=== PATIENT | male | born 1945 | race Caucasian/White ===

== ENCOUNTER → 2016-11-25 | Outpatient (CLI) | payer MEDICARE ==
[~2016-11-25] MED LIST: OMNIPAQUE 350 MG/ML, 75ML BOTTLE ONE
== END | disposition home or self-care (01) ==
LOC: CFH 13:35
PROVIDERS: ATTEND Internal Medicine Cardiovascular Disease
DX: I71.2 Thoracic aortic aneurysm, without rupture (principal); E78.2 Mixed hyperlipidemia
CPT/HCPCS: 71260; 82565; 93880; Q9967

== ENCOUNTER → 2017-04-20 | Outpatient (CLI) | payer MEDICARE ==
[2017-04-20 13:52] LABS: ASPARTATE AMINO TRANSFERASE 12 U/L (15-37); BLOOD UREA NITROGEN 17 mg/dL (7-18)
== END | disposition home or self-care (01) ==
LOC: CFH 08:07
PROVIDERS: ATTEND Internal Medicine Cardiovascular Disease
DX: E11.9 Type 2 diabetes mellitus without complications (principal); I10 Essential (primary) hypertension; E78.2 Mixed hyperlipidemia; E66.01 Morbid (severe) obesity due to excess calories; G47.00 Insomnia, unspecified
CPT/HCPCS: 36415; 80053; 80061

== ENCOUNTER → 2017-11-30 | Outpatient (CLI) | payer MEDICARE ==
[~2017-11-30] MED LIST changes: +OMNIPAQUE 350 MG/ML, 100ML BOTTLE ONE; -OMNIPAQUE 350 MG/ML, 75ML BOTTLE ONE
== END | disposition home or self-care (01) ==
LOC: CFH 09:02
PROVIDERS: ATTEND Internal Medicine Cardiovascular Disease
DX: I71.2 Thoracic aortic aneurysm, without rupture (principal)
CPT/HCPCS: 71275; Q9967

== ENCOUNTER → 2018-06-09 | Outpatient (CLI) | payer MEDICARE ==
[2018-06-09 15:19] LABS: CREATININE 1.13 mg/dL (0.7-1.3)
== END | disposition home or self-care (01) ==
LOC: RAD 14:18
PROVIDERS: ATTEND Family Medicine
DX: N28.1 Cyst of kidney, acquired (principal); R59.1 Generalized enlarged lymph nodes
CPT/HCPCS: 36415; 74177; 82565; Q9967

== ENCOUNTER 2018-06-16 14:40 | Outpatient (CLI) | payer MEDICARE ==
[2018-06-16] MEDS ORDERED: OMNIPAQUE 350 MG/ML, 100ML BOTTLE ONE (16:36)
== END 2018-06-16 23:59 | disposition home or self-care (01) ==
LOC: CFH 14:40
PROVIDERS: ATTEND Family Medicine
DX: R59.1 Generalized enlarged lymph nodes (principal)
CPT/HCPCS: 70491; Q9967

== ENCOUNTER → 2018-06-21 | Outpatient (CLI) | payer MEDICARE ==
[~2018-06-21] MED LIST changes: +CYCL-259 PO; +DICL100T4 PO; +GABA600T7 PO; +HYDR12.517 PO; +LIDOCAINE-MPF 1%, 5ML ONE; +LOSA100T14 PO; +OMEP-110 PO; -OMNIPAQUE 350 MG/ML, 100ML BOTTLE ONE; +SIMV20TA3 PO; +TAMS0.4C2 PO; +TRAM200T35 PO; +TRAZ-137 PO
== END | disposition home or self-care (01) ==
LOC: RAD 09:08
PROVIDERS: ATTEND Family Medicine
DX: Z02.9 Encounter for administrative examinations, unspecified (principal)

== ENCOUNTER 2018-06-28 06:41 | Day surgery (SDC) | payer MEDICARE ==
[~2018-06-28] VITALS: Ht 167.6 cm; Wt 109.7 kg
[2018-06-28 07:35] VITALS: BP 152/90
[2018-06-28] MEDS ORDERED: TRAZ-137 PO (07:35)
[2018-06-28] MEDS ORDERED: HYDR12.517 PO (07:35)
[2018-06-28] MEDS ORDERED: LOSA100T14 PO (07:35)
[2018-06-28] MEDS ORDERED: TRAM200T35 PO (07:35)
[2018-06-28] MEDS ORDERED: OMEP-110 PO (07:35)
[2018-06-28] MEDS ORDERED: SIMV20TA3 PO (07:35)
[2018-06-28] MEDS ORDERED: GABA600T7 PO (07:35)
[2018-06-28] MEDS ORDERED: TAMS0.4C2 PO (07:35)
[2018-06-28] MEDS ORDERED: CYCL-259 PO (07:35)
[2018-06-28] MEDS ORDERED: DICL100T80 PO (07:35)
[2018-06-28] MEDS ORDERED: LACTATED RINGERS 1,000 ML IV SCH (07:44)
[2018-06-28] MEDS ORDERED: SODIUM CHLORIDE 0.9% 1,000 ML IV SCH (08:00)
[2018-06-28] MEDS ORDERED: LIDOCAINE-MPF 1%, 5ML ONE (08:11)
[2018-06-28] MEDS ORDERED: MIDAZOLAM 1 MG/ML, 5ML ONE ×2 (08:17→08:18)
[2018-06-28] MEDS ORDERED: FENTANYL PF 100 MCG/2ML ONE (08:17)
[2018-06-28] MEDS ORDERED: FLUMAZENIL 0.1 MG/1 ML, 5ML ONE (08:18)
[2018-06-28] MEDS ORDERED: NALOXONE 1 MG/ML, 2ML ONE (08:18)
== END 2018-06-28 10:20 | disposition home or self-care (01) ==
LOC: OUT 06:41 → EDSTATUS 08:30 → OUT 10:20
PROVIDERS: ATTEND Family Medicine
DX: R59.1 Generalized enlarged lymph nodes (principal); I10 Essential (primary) hypertension; E11.9 Type 2 diabetes mellitus without complications; Z79.84 Long term (current) use of oral hypoglycemic drugs
CPT/HCPCS: 49180; 77012; 88305; 99156; J2250; J3010; J7030; 88184; 88185; 88341; 88342; 88360; 88377; 99157; J2310

== ENCOUNTER → 2018-07-14 | Outpatient (CLI) | payer MEDICARE ==
[~2018-07-14] MED LIST changes: -LIDOCAINE-MPF 1%, 5ML ONE
== END | disposition home or self-care (01) ==
LOC: PETCFH 09:37
PROVIDERS: ATTEND Internal Medicine
DX: C83.33 Diffuse large B-cell lymphoma, intra-abdominal lymph nodes (principal); R59.9 Enlarged lymph nodes, unspecified
CPT/HCPCS: 78815; A9552

== ENCOUNTER → 2018-07-14 | Outpatient (CLI) | payer MEDICARE | END | disposition home or self-care (01) | LOC: CVU 13:12 | PROVIDERS: ATTEND Internal Medicine | DX: I11.9 Hypertensive heart disease without heart failure (principal); E78.5 Hyperlipidemia, unspecified; C83.33 Diffuse large B-cell lymphoma, intra-abdominal lymph nodes | CPT/HCPCS: 0399T; 93306 ==

== ENCOUNTER 2018-07-19 06:54 | Day surgery (SDC) | payer MEDICARE ==
[~2018-07-19] VITALS: Ht 167.6 cm; Wt 110.0 kg
[2018-07-19] MEDS ORDERED: SODIUM CHLORIDE 0.9% 1,000 ML IV SCH (07:26)
[2018-07-19] MEDS ORDERED: CEFAZOLIN PMX 1GM/50ML 50 ML IV ONE (07:30)
[2018-07-19 07:37] VITALS: BP 130/91
[2018-07-19] MEDS ORDERED: LIDOCAINE-MPF 1%, 5ML ONE (07:47)
[2018-07-19] MEDS ORDERED: LIDOCAINE 1%, 20ML ONE (07:47)
[2018-07-19] MEDS ORDERED: NALOXONE 1 MG/ML, 2ML ONE (08:11)
[2018-07-19] MEDS ORDERED: MIDAZOLAM 1 MG/ML, 5ML ONE (08:11)
[2018-07-19] MEDS ORDERED: FENTANYL PF 100 MCG/2ML ONE ×2 (08:11)
[2018-07-19] MEDS ORDERED: FLUMAZENIL 0.1 MG/1 ML, 5ML ONE (08:11)
== END 2018-07-19 11:05 | disposition home or self-care (01) ==
LOC: OUT 06:54
PROVIDERS: ATTEND Internal Medicine
DX: Z45.2 Encounter for adjustment and management of vascular access device (principal); C83.33 Diffuse large B-cell lymphoma, intra-abdominal lymph nodes; G47.30 Sleep apnea, unspecified; I10 Essential (primary) hypertension; E78.5 Hyperlipidemia, unspecified; E11.9 Type 2 diabetes mellitus without complications; K21.9 Gastro-esophageal reflux disease without esophagitis; Z90.49 Acquired absence of other specified parts of digestive tract; Z98.890 Other specified postprocedural states
CPT/HCPCS: 36561; 38222; 76937; 77001; 77012; 99156; 99157; C1788; J1642; J2250; J3010; J3490; J2310

== ENCOUNTER 2018-07-29 14:57 | Emergency (ER) | payer MEDICARE ==
[~2018-07-29] VITALS: Ht 198.1 cm; Wt 253.0 kg
[~2018-07-29 14:57] MED LIST changes: -DICL100T4 PO; +DICL100T80 PO
[2018-07-29 15:57] LABS: ALANINE AMINOTRANSFERASE 32 U/L (12-78); ALBUMIN 3.2 g/dL (3.4-5.0); ANION GAP 8 mmol/L (5-15); CHLORIDE 107 mmol/L (98-107); CREATININE 1.46 mg/dL (0.7-1.3)
[2018-07-29 15:59] LABS: MEAN CORPUSCULAR HEMOGLOBIN 31.2 pg (27.5-34.5); MEAN CORPUSCULAR HGB CONC 33.9 g/dL (33.2-36.2); MEAN CORPUSCULAR VOLUME 91.9 fL (81-97); MEAN PLATELET VOLUME 6.9 fL (7.4-10.4); PLATELET COUNT 314 x10^3/uL (130-400); RED BLOOD COUNT 4.39 x10^6/uL (4.38-5.82); RED CELL DISTRIBUTION WIDTH 14.3 % (9.4-14.8)
[2018-07-29 16:02] LABS: ALKALINE PHOSPHATASE 118 U/L (45-117); BILIRUBIN,TOTAL 0.6 mg/dL (0.2-1.0); TOTAL PROTEIN 7.3 g/dL (6.4-8.2); TROPONIN I < 0.015 ng/mL (0.000-0.045)
[2018-07-29 16:48] LABS: MD YES
--- NOTE | 2018-07-29 16:49 | NUR ---
PT UPDATED ON POC, IV PLACED/SL. PT TO CT.
[2018-07-29 16:51] LABS: BAND#(MANUAL) 9.24 x10^3/uL; BANDS%(MANUAL) 28 % (0-7); METAMYELOCYTES# (MANUAL) 0.33 x10^3/uL (0-0); METAMYELOCYTES% (MANUAL) 1 % (0-1); MONOS#(MANUAL) 0.66 x10^3/uL (0.3-2.7); MONOS% (MANUAL) 2 % (2-9); SEG#(MANUAL) 22.77 x10^3/uL (1.8-6.8); SEGS% (MANUAL) 69 % (42-75)
[2018-07-29 16:55] LABS: <PLATELET ESTIMATE> ADEQUATE; <PLT MORPHOLOGY> NORMAL PLT MORPH; <RBC MORPHOLOGY> NORMAL
[2018-07-29] MEDS ORDERED: RITU10VI IV (17:01)
[2018-07-29] MEDS ORDERED: FILG300D2 IV (17:01)
[2018-07-29] MEDS ORDERED: OMNIPAQUE 350 MG/ML, 100ML BOTTLE ONE (17:19)
--- NOTE | 2018-07-29 17:36 | NUR ---
ALL RESULTS BACK, PT FOR RECHECK. PT AMBULATING PRN TO BR WITHOUT PROBLEM. NO CP DURING ED STAY.
[2018-07-29 18:06] VITALS: BP 168/100
== END 2018-07-29 18:09 | disposition home or self-care (01) ==
LOC: ED 17:30
DX: J90 Pleural effusion, not elsewhere classified (principal)
CPT/HCPCS: 36415; 71045; 71275; 80053; 84484; 85025; 85379; 93005; 99284; Q9967

== ENCOUNTER 2018-08-10 10:44 | Outpatient (CLI) | payer MEDICARE ==
[~2018-08-10 10:44] MED LIST changes: +FILG300D2 IV; +RITU10VI IV
== END 2018-08-10 23:59 | disposition home or self-care (01) ==
LOC: RAD 10:44
PROVIDERS: ATTEND Internal Medicine Cardiovascular Disease
DX: Z02.9 Encounter for administrative examinations, unspecified (principal)

== ENCOUNTER 2018-08-13 09:53 | Outpatient (CLI) | payer MEDICARE | END 2018-08-13 23:59 | disposition home or self-care (01) | LOC: RAD 09:53 | PROVIDERS: ATTEND Internal Medicine Cardiovascular Disease | DX: I10 Essential (primary) hypertension (principal); R42 Dizziness and giddiness; Z79.899 Other long term (current) drug therapy | CPT/HCPCS: 78452; 93017; A9502 ==

== ENCOUNTER → 2018-09-22 | Outpatient (CLI) | payer MEDICARE ==
[~2018-09-22] MED LIST changes: +OMNIPAQUE 350 MG/ML, 100ML BOTTLE ONE
== END | disposition home or self-care (01) ==
LOC: RAD 10:27
PROVIDERS: ATTEND Internal Medicine Hematology & Oncology
DX: C83.33 Diffuse large B-cell lymphoma, intra-abdominal lymph nodes (principal); I51.7 Cardiomegaly; M47.816 Spondylosis without myelopathy or radiculopathy, lumbar region; K57.90 Diverticulosis of intestine, part unspecified, without perforation or abscess without bleeding; N28.1 Cyst of kidney, acquired
CPT/HCPCS: 71260; 74177; J1642; Q9967

== ENCOUNTER → 2018-12-09 | Outpatient (CLI) | payer MEDICARE ==
[~2018-12-09] MED LIST changes: -OMNIPAQUE 350 MG/ML, 100ML BOTTLE ONE
[2018-12-09 16:14] LABS: ALBUMIN 3.5 g/dL (3.4-5.0); ANION GAP 7 mmol/L (5-15); CALCIUM 8.8 mg/dL (8.5-10.1); CHLORIDE 107 mmol/L (98-107)
[2018-12-09 16:17] LABS: ALANINE AMINOTRANSFERASE 18 U/L (12-78); ALKALINE PHOSPHATASE 51 U/L (45-117); BILIRUBIN,TOTAL 0.8 mg/dL (0.2-1.0); CREATININE 1.15 mg/dL (0.7-1.3); TOTAL PROTEIN 6.9 g/dL (6.4-8.2)
== END | disposition home or self-care (01) ==
LOC: PETCFH 12:12
PROVIDERS: ATTEND Internal Medicine
DX: Z51.11 Encounter for antineoplastic chemotherapy (principal); Z51.89 Encounter for other specified aftercare; C83.33 Diffuse large B-cell lymphoma, intra-abdominal lymph nodes; R59.1 Generalized enlarged lymph nodes; D70.1 Agranulocytosis secondary to cancer chemotherapy
CPT/HCPCS: 36415; 78815; 80053; 83615; 84550; A9552

== ENCOUNTER 2019-01-14 08:33 | Day surgery (SDC) | payer MEDICARE ==
[~2019-01-14] VITALS: Ht 167.6 cm; Wt 115.0 kg
[2019-01-14 09:31] VITALS: BP 150/88
== END 2019-01-14 12:00 | disposition home or self-care (01) ==
LOC: OUT 08:33
PROVIDERS: ATTEND Internal Medicine
DX: Z45.2 Encounter for adjustment and management of vascular access device (principal); C83.33 Diffuse large B-cell lymphoma, intra-abdominal lymph nodes; I10 Essential (primary) hypertension; E11.9 Type 2 diabetes mellitus without complications; E78.5 Hyperlipidemia, unspecified; K21.9 Gastro-esophageal reflux disease without esophagitis; N40.0 Benign prostatic hyperplasia without lower urinary tract symptoms; G47.33 Obstructive sleep apnea (adult) (pediatric); Z79.82 Long term (current) use of aspirin; Z79.891 Long term (current) use of opiate analgesic; Z79.899 Other long term (current) drug therapy; Z98.84 Bariatric surgery status; Z90.49 Acquired absence of other specified parts of digestive tract; Z98.890 Other specified postprocedural states
CPT/HCPCS: 36590; 77001; 99156; 99157; J2250; J3010; J2310

== ENCOUNTER 2019-03-21 10:05 | Outpatient (CLI) | payer MEDICARE | END 2019-03-21 23:59 | disposition home or self-care (01) | LOC: CVU 10:05 | PROVIDERS: ATTEND Internal Medicine | DX: I08.8 Other rheumatic multiple valve diseases (principal); C83.33 Diffuse large B-cell lymphoma, intra-abdominal lymph nodes; E78.5 Hyperlipidemia, unspecified; I10 Essential (primary) hypertension | CPT/HCPCS: 0399T; 93306 ==

== ENCOUNTER 2019-10-10 00:09 | Inpatient (IN) | payer MEDICARE ==
[~2019-10-10] VITALS: Ht 167.6 cm; Wt 101.4 kg
[~2019-10-10 00:09] MED LIST changes: +SIMV20TA19 PO; -SIMV20TA3 PO; -TRAZ-137 PO; +TRAZ-175 PO
--- NOTE | 2019-10-10 00:27 | NUR ---
PT IS A PLEASANT MALE BIB [facility] THIS EVENING FOR 2 WITNESSED SYNCOPAL EVENTS PER SPOUSE AT HOME AFTER 10 PM. PER , PT SEES PEER COUNSELOR FOR HIGH BLOOD PRESSURE AND CHF. PT STATES THAT HE HAD A COUGH LAST THURSDAY THAT RESOLVED, BUT PT HAS A HISTORY OF DEMARCUS AND WEARS CPAP AT HOME AT NIGHT. PT ALSO FOUND TO BE BRADYCARDIC 45-55 ON SCENE WITH EMS AND 90% ON RA. PT RESPONDS TO 4L NC 02 AND NOW SATTING AT 98% UPON ARRIVAL TO [facility]. PT IS AFEBRILE AND ATTACHED TO CARDIAC AND VS MONITORS AT THIS TIME. GAGE ONOFRE AT BS FOR EKG. DR TORRES AT BS FOR PT HISTORY AND ASSESSMENT. PT DENIES ANY PAIN AND IS RESTING COMFORTABLY IN GOWN WITH CALL LIGHT WITHIN REACH. PT EDUCATED ON ER PROCESS AND POC AND VERBALIZES UNDERSTANDING. FSBS 135 PER EMS. PIV ACCESS ESTABLISHED EN ROUTE TO [facility] ED.
[2019-10-10] MEDS ORDERED: FINASTERIDE (00:32)
--- NOTE | 2019-10-10 00:36 | NUR ---
LAB AND XRAY AT AT THIS TIME. PT PROVIDED A URINAL PER REQUEST.
[2019-10-10 00:48] LABS: BASOPHILS % (AUTO) 0 % (0-1); EOSINOPHILS # (AUTO) 0.04 x10^3/uL (0-0.4); EOSINOPHILS % (AUTO) 1 % (1-7); LYMPHOCYTES # (AUTO) 0.54 x10^3/uL (1-3.4); LYMPHOCYTES % (AUTO) 8 % (22-44); MD NO; MEAN CORPUSCULAR HEMOGLOBIN 30.1 pg (27.5-34.5); MEAN CORPUSCULAR HGB CONC 32.9 g/dL (33.2-36.2); MEAN CORPUSCULAR VOLUME 91.6 fL (81-97); MEAN PLATELET VOLUME 6.3 fL (7.4-10.4); MONOCYTES # (AUTO) 0.27 x10^3/uL (0.2-0.8); MONOCYTES % (AUTO) 4 % (2-9); NEUTROPHILS # (AUTO) 5.62 x10^3/uL (1.8-6.8); NEUTROPHILS % (AUTO) 87 % (42-75); PLATELET COUNT 158 x10^3/uL (130-400); RED BLOOD COUNT 4.31 x10^6/uL (4.38-5.82)
[2019-10-10 00:57] LABS: ALANINE AMINOTRANSFERASE 17 U/L (12-78); ALBUMIN 3.1 g/dL (3.4-5.0); ANION GAP 7 mmol/L (5-15); CALCIUM 7.8 mg/dL (8.5-10.1); CHLORIDE 105 mmol/L (98-107); CREATININE 1.78 mg/dL (0.7-1.3)
[2019-10-10 01:01] LABS: ALKALINE PHOSPHATASE 61 U/L (45-117); BILIRUBIN,TOTAL 0.6 mg/dL (0.2-1.0); TOTAL PROTEIN 6.6 g/dL (6.4-8.2); TROPONIN I 0.027 ng/mL (0.000-0.045)
--- NOTE | 2019-10-10 01:46 | NUR ---
BREAK RN: PATIENT BACK FROM CT, ADMITTING MD TO ROOM
--- NOTE | 2019-10-10 01:53 | NUR ---
PT SPOUSE LUIS [facility] NOTIFIED OF PT BEING ADMITTED TO HOSPITAL. LUIS'S PHONE NUMBER IS [phone]
[2019-10-10] MEDS ORDERED: LABETALOL 5MG/ML, 20ML IVPush PRN (02:00)
[2019-10-10] MEDS ORDERED: ACETAMINOPHEN 325 MG TABLET PO PRN (02:00)
[2019-10-10] MEDS ORDERED: ONDANSETRON ODT 4 MG PO PRN (02:00)
--- NOTE | 2019-10-10 02:16 | NUR ---
ATTEMPTED REPORT TO JEMAL ESTRADA X 1. NATALIE NOT AVAILABLE AT THIS TIME. PER FLOOR, NATALIE JOAQUIN WILL CALL BACK FOR REPORT.
--- NOTE | 2019-10-10 02:50 | NUR ---
REPORT OF PT TO JEMAL ESTRADA. ALL QUESTIONS ANSWERED. TECH PAGED FOR TRANSPORT OF PT TO FLOOR.
--- NOTE | 2019-10-10 02:58 | NUR ---
GAGE ONOFRE AT TO TRANSPORT PT TO FLOOR VIA GURNEY AT THIS TIME.
[2019-10-10] MEDS ORDERED: GLUCAGON 1 MG IM PRN (03:00)
[2019-10-10] MEDS ORDERED: DEXTROSE 50%, 50ML SYRINGE IVPush PRN (03:00)
[2019-10-10] MEDS ORDERED: DEXTROSE 4 GM TAB.CHEW PO PRN (03:00)
[2019-10-10 03:54] VITALS: BP 111/76
[2019-10-10] MEDS: NS + 20MEQ KCL 1,000 ML IV SCH ×2 (05:44→13:25)
[2019-10-10] MEDS: INSULIN LISPRO 100 UNITS/ML, PEN SQ-INSULIN SCH ×4 (07:00→20:38)
[2019-10-10 07:10] VITALS: BP 118/73
[2019-10-10 07:11] VITALS: BP 116/79
[2019-10-10 07:12] VITALS: BP 103/70
[2019-10-10 08:44] LABS: BASOPHILS # (AUTO) 0.02 x10^3/uL (0-0.1); BASOPHILS % (AUTO) 0 % (0-1); EOSINOPHILS # (AUTO) 0.01 x10^3/uL (0-0.4); EOSINOPHILS % (AUTO) 0 % (1-7); LYMPHOCYTES # (AUTO) 0.82 x10^3/uL (1-3.4); LYMPHOCYTES % (AUTO) 21 % (22-44); MD NO; MEAN CORPUSCULAR HEMOGLOBIN 30.2 pg (27.5-34.5); MEAN CORPUSCULAR VOLUME 91.6 fL (81-97); MONOCYTES # (AUTO) 0.34 x10^3/uL (0.2-0.8); MONOCYTES % (AUTO) 9 % (2-9); NEUTROPHILS # (AUTO) 2.67 x10^3/uL (1.8-6.8); NEUTROPHILS % (AUTO) 69 % (42-75); PLATELET COUNT 161 x10^3/uL (130-400); RED BLOOD COUNT 4.19 x10^6/uL (4.38-5.82); RED CELL DISTRIBUTION WIDTH 13.9 % (9.4-14.8)
[2019-10-10 08:57] LABS: ALANINE AMINOTRANSFERASE 20 U/L (12-78); ANION GAP 6 mmol/L (5-15); CALCIUM 7.7 mg/dL (8.5-10.1); CHLORIDE 105 mmol/L (98-107); CREATININE 1.72 mg/dL (0.7-1.3)
[2019-10-10 09:02] LABS: ALKALINE PHOSPHATASE 63 U/L (45-117); BILIRUBIN,TOTAL 0.7 mg/dL (0.2-1.0); TOTAL PROTEIN 6.4 g/dL (6.4-8.2); TROPONIN I 0.022 ng/mL (0.000-0.045)
[2019-10-10] MEDS: SODIUM CHLORIDE FLUSH 10ML SYR IVF SCH ×2 (09:21→20:38)
[2019-10-10] MEDS: OMEPRAZOLE 20 MG CAPSULE.DR PO SCH (09:21)
[2019-10-10 12:25] VITALS: BP 110/78
[2019-10-10 14:58] LABS: MICROSCOPIC AUTO
[2019-10-10 15:03] LABS: CULTURE INDICATED? NO
[2019-10-10 20:00] VITALS: BP 116/82
[2019-10-10] MEDS ORDERED: TAMSULOSIN 0.4 MG CAP.ER.24H PO SCH (21:00)
[2019-10-10] MEDS ORDERED: SIMVASTATIN 20 MG TABLET PO SCH (21:00)
[2019-10-11] MEDS: NS + 20MEQ KCL 1,000 ML IV SCH (00:43)
[2019-10-11 01:00] VITALS: BP 112/78
[2019-10-11 01:03] VITALS: BP 115/71
[2019-10-11 01:05] VITALS: BP 103/62
[2019-10-11 06:20] VITALS: BP 132/88
[2019-10-11] MEDS: INSULIN LISPRO 100 UNITS/ML, PEN SQ-INSULIN SCH ×2 (07:00→11:00)
[2019-10-11] MEDS: OMEPRAZOLE 20 MG CAPSULE.DR PO SCH (08:30)
[2019-10-11 09:38] LABS: CREATININE 1.36 mg/dL (0.7-1.3)
[2019-10-11 10:27] LABS: ANION GAP 8 mmol/L (5-15); CHLORIDE 110 mmol/L (98-107)
[2019-10-11] MEDS: SODIUM CHLORIDE FLUSH 10ML SYR IVF SCH (10:31)
[2019-10-11] MEDS ORDERED: POTA20TA6 PO (10:35)
[2019-10-11] MEDS ORDERED: POTASSIUM CHLORIDE 20 MEQ TAB.ER.PRT PO ONE (11:00)
[2019-10-11 12:00] VITALS: BP 144/93
== END 2019-10-11 12:31 | disposition home or self-care (01) | DRG 73 ==
LOC: ED 02:04 → EDIP 02:05 → 4EST 03:02
PROVIDERS: ADMIT Hospitalist; ATTEND Hospitalist
DX: G90.8 Other disorders of autonomic nervous system (principal); N17.0 Acute kidney failure with tubular necrosis; E78.5 Hyperlipidemia, unspecified; E87.6 Hypokalemia; I77.819 Aortic ectasia, unspecified site; N40.0 Benign prostatic hyperplasia without lower urinary tract symptoms; W07.XXXA Fall from chair, initial encounter; E11.22 Type 2 diabetes mellitus with diabetic chronic kidney disease; I12.9 Hypertensive chronic kidney disease with stage 1 through stage 4 chronic kidney disease, or unspecified chronic kidney disease; N18.9 Chronic kidney disease, unspecified; Z79.84 Long term (current) use of oral hypoglycemic drugs; Z79.899 Other long term (current) drug therapy; Y93.89 Activity, other specified; Y92.89 Other specified places as the place of occurrence of the external cause; Y99.8 Other external cause status; R00.1 Bradycardia, unspecified
CPT/HCPCS: 36415; 70450; 71045; 80048; 80053; 81001; 82962; 83036; 83880; 84443; 84484; 85025; 93005; 93306; G0378; J3480

== ENCOUNTER 2020-02-27 10:19 | Outpatient (CLI) | payer MEDICARE ==
[~2020-02-27 10:19] MED LIST changes: +FINASTERIDE; +POTA20TA6 PO
[2020-02-27] MEDS ORDERED: OMNIPAQUE 350 MG/ML, 100ML BOTTLE ONE (14:32)
== END 2020-02-27 23:59 | disposition home or self-care (01) ==
LOC: CFH 10:19 → MERGE 10:19 → CFH 23:59
PROVIDERS: ATTEND Internal Medicine Cardiovascular Disease
DX: I71.2 Thoracic aortic aneurysm, without rupture (principal)
CPT/HCPCS: 71275; 82565; Q9967